=== PATIENT | male | born 1975 | race Caucasian/White ===

== ENCOUNTER 2018-06-01 13:00 | Emergency (ER) | payer BC, OTHER ==
[2018-06-01 13:30] VITALS: BP 121/64
--- NOTE | 2018-06-01 13:43 | UC ---
Skin Complaint HPI - HPI Summary HPI Summary: The patient is a 42-year-old male that as he was putting his coat on experienced 5 painful bites or stings. He shook his coat out but did not see what insect stung him. Initially he had pain and itching. About 10 hours later he experienced swelling and redness of his right arm. The bite occurred approximately 10 AM yesterday morning. - History of Current Complaint Chief Complaint: UCSkin Time Seen by Provider: 06/01/18 13:27 Stated Complaint: INSECT BITE, SWOLLEN AND WARM ON R ARM Hx Obtained From: Patient Onset/Duration: Sudden Onset, Lasting Hours Timing: Constant Onset Severity: Mild Current Severity: Moderate Pain Intensity: 0 Pain Scale Used: 0-10 Numeric Location: Discrete Character: Pain, Redness, Raised, Painful Aggravating Factor(s): Touch Alleviating Factor(s): OTC Meds, Antihistamines Associated Signs & Symptoms: Positive: Tenderness - Allergy/Home Medications Allergies/Adverse Reactions: Allergies Allergy/AdvReac Type Severity Reaction Status Date / Time No Known Allergies Allergy Verified 06/01/18 13:30 Home Medications: Home Medications Ibuprofen TAB* [Advil TAB*] 400 mg PO Q6H PRN 06/01/18 [History Confirmed ] diphenhydrAMINE HCl [Benadryl Allergy] 25 mg PO ONCE PRN 06/01/18 [History Confirmed 06/01/18] Review of Systems All Other Systems Reviewed And Are Negative: Yes Constitutional: Positive: Negative Skin: Positive: Rash Eyes: Positive: Negative ENT: Positive: Negative Respiratory: Positive: Negative Cardiovascular: Positive: Negative Gastrointestinal: Positive: Negative Genitourinary: Positive: Negative Motor: Positive: Negative Neurovascular: Positive: Negative Musculoskeletal: Positive: Negative Neurological: Positive: Negative Psychological: Positive: Negative PMH/Surg Hx/FS Hx/Imm Hx Previously Healthy: Yes - Surgical History Surgical History: Yes Surgery Procedure, Year, and Place: bariatric surgery [facility] - Family History Known Family History: Positive: Hypertension - Social History Alcohol Use: None Substance Use Type: None Smoking Status (MU): Never Smoked Tobacco Physical Exam Triage Information Reviewed: Yes Appearance: Well-Appearing, No Pain Distress, Well-Nourished Vital Signs: Initial Vital Signs Temp 98.4 F 06/01/18 13:22 Pulse 70 06/01/18 13:22 Resp 16 06/01/18 13:22 BP 121/64 06/01/18 13:22 Pulse Ox 100 06/01/18 13:22 Eyes: Positive: Conjunctiva Clear ENT: Positive: Hearing grossly normal. Negative: Nasal congestion, Nasal drainage, Trismus, Muffled voice, Hoarse voice Neck: Positive: Supple Respiratory: Positive: Lungs clear, Normal breath sounds, No respiratory distress, No accessory muscle use Cardiovascular: Positive: RRR, No Murmur Neurological: Positive: Alert Skin Exam: Other - Five bite gonzalez in close proximtry on his right ventral forearm, 4 bites with scabs/crust, redness extending distally to wrist and proximally towards elbow Course/Dx - Diagnoses Provider Diagnoses: local reaction to insect bites (right volar forearm) Discharge - Sign-Out/Discharge Documenting (check all that apply): Patient Departure All imaging exams completed and their final reports reviewed: No Studies - Discharge Plan Condition: Stable Disposition: HOME Referrals: Norma Goncalves NP [Primary Care Provider] - - Billing Disposition and Condition Condition: STABLE Disposition: Home Images Front/Back of Body, Lg ([place]): 1 - cluster of five bites here
[2018-06-01] MEDS ORDERED: predniSONE TAB* 20 MG PO ONE (13:50)
== END 2018-06-01 14:13 | disposition home or self-care (01) ==
LOC: UCCORT 13:00
DX: S50.861A Insect bite (nonvenomous) of right forearm, initial encounter (principal); W57.XXXA Bitten or stung by nonvenomous insect and other nonvenomous arthropods, initial encounter; Y92.9 Unspecified place or not applicable
CPT/HCPCS: 99201; G0463; J7512